=== PATIENT | male | born 2000 | race Caucasian/White ===

== ENCOUNTER 2023-10-23 13:41 | Emergency (ER) | payer OTHER ==
[2023-10-23 13:52] LABS: BASOPHILS ABSOLUTE AUTO 0.08 K/uL (0.00-0.20); EOSINOPHILS ABSOLUTE AUTO 0.11 K/uL (0.00-0.45); EOSINOPHILS PERCENT AUTO 1.3 % (0.0-6.0); HEMATOCRIT 47.4 % (42.0-52.0); HEMOGLOBIN 16.2 g/dL (14.0-18.0); IMMATURE GRAN PERCENT AUTO 1.2 % (0.0-0.4); LYMPHOCYTES ABSOLUTE AUTO 3.31 K/uL (1.00-4.80); LYMPHOCYTES PERCENT AUTO 39.5 % (24.0-44.0); MEAN CORPUSCULAR HEMOGLOBIN 29.2 pg (28.0-32.0); MEAN CORPUSCULAR HGB CONC 34.2 g/dL (32.0-36.0); MEAN CORPUSCULAR VOLUME 85.6 fL (83.0-99.0); MEAN PLATELET VOLUME 9.9 fL (9.4-12.4); MONOCYTES ABSOLUTE AUTO 0.74 K/uL (0.00-0.80); MONOCYTES PERCENT AUTO 8.8 % (0.0-8.0); NEUTROPHILS ABSOLUTE AUTO 4.05 K/uL (1.80-7.70); NEUTROPHILS PERCENT AUTO 48.2 % (41.0-71.0); PLATELET COUNT,PLT 239 K/uL (150-400); RED BLOOD CELL COUNT 5.54 M/uL (4.52-5.90); WHITE BLOOD CELL COUNT,WBC 8.39 K/uL (3.9-11.3)
[2023-10-23] MEDS ORDERED: Acetaminophen 325 MG Tab PO ONE (13:52)
[2023-10-23] MEDS ORDERED: Iopamidol 755 MG/ML 500 ML Multipack Bottle IVPUSH STA (14:09)
[2023-10-23 14:17] LABS: ALANINE AMINOTRANSFERASE,ALT 36 IU/L (14-63); ALBUMIN 3.9 g/dL (3.4-5.0); ALKALINE PHOSPHATASE 85 U/L (46-116); ASPARTATE AMNIOTRANSFERASE,AST 17 IU/L (15-37); BILIRUBIN TOTAL 0.5 mg/dL (0.2-1.0); BLOOD UREA NITROGEN,BUN 19 mg/dL (7.0-18.0); CALCIUM 9.3 mg/dL (8.5-10.1); CARBON DIOXIDE,CO2 26.1 mmol/L (21.0-32.0); CHLORIDE,CL 101 mmol/L (98-107); CREATININE 1.1 mg/dL (0.8-1.3); ESTIMATED GFR 96 mL/min (>60); GLUCOSE RANDOM 102 mg/dL (74-106); POTASSIUM,K 3.8 mmol/L (3.5-5.1); PROTEIN TOTAL,TP 7.7 g/dL (6.4-8.2); SODIUM,NA 138 mmol/L (136-148)
[2023-10-23] MEDS ORDERED: Ketorolac 30 MG/ML SDV IVPUSH ONE (18:07)
== END 2023-10-23 19:07 | disposition home or self-care (01) ==
LOC: MW.ED 13:41
DX: S06.0X0A Concussion without loss of consciousness, initial encounter (principal); S40.212A Abrasion of left shoulder, initial encounter; V43.52XA Car driver injured in collision with other type car in traffic accident, initial encounter
CPT/HCPCS: 36415; 70450; 71260; 72125; 73562; 73590; 74177; 80053; 85025; 96374; 99284; A9270; J1885; Q9967; 72128-26; 72131-26

== ENCOUNTER 2024-07-12 00:31 | Emergency (ER) | payer SELFPAY ==
[2024-07-12] MEDS ORDERED: Sodium Chloride 0.9% 10 ML Syringe FLUSH PRN (00:43)
[2024-07-12] MEDS ORDERED: Sodium Chloride 0.9% 2.5 ML Syringe FLUSH PRN (00:43)
[2024-07-12] MEDS: Ketorolac 30 MG/ML SDV IVPUSH ONE (00:52)
[2024-07-12] MEDS: Sodium Chloride 0.9% 1,000 ML IV ONE (00:52)
[2024-07-12 01:04] LABS: BASOPHILS ABSOLUTE AUTO 0.08 K/uL (0.00-0.20); BASOPHILS PERCENT AUTO 0.7 % (0.0-1.0); EOSINOPHILS ABSOLUTE AUTO 0.18 K/uL (0.00-0.45); EOSINOPHILS PERCENT AUTO 1.6 % (0.0-6.0); HEMATOCRIT 43.7 % (42.0-52.0); HEMOGLOBIN 15.3 g/dL (14.0-18.0); IMMATURE GRAN ABSOLUTE AUTO 0.16 K/uL (0.00-0.05); IMMATURE GRAN PERCENT AUTO 1.5 % (0.0-0.4); LYMPHOCYTES ABSOLUTE AUTO 3.29 K/uL (1.00-4.80); MEAN CORPUSCULAR HEMOGLOBIN 29.3 pg (28.0-32.0); MEAN CORPUSCULAR VOLUME 83.7 fL (83.0-99.0); MEAN PLATELET VOLUME 9.7 fL (9.4-12.4); MONOCYTES PERCENT AUTO 9.1 % (0.0-8.0); NEUTROPHILS ABSOLUTE AUTO 6.25 K/uL (1.80-7.70); NEUTROPHILS PERCENT AUTO 57.1 % (41.0-71.0); PLATELET COUNT,PLT 276 K/uL (150-400); RED BLOOD CELL COUNT 5.22 M/uL (4.52-5.90); WHITE BLOOD CELL COUNT,WBC 10.96 K/uL (3.9-11.3)
[2024-07-12 01:29] LABS: A/G RATIO 0.9 (0.9-1.6); ALBUMIN 3.7 g/dL (3.4-5.0); BILIRUBIN TOTAL 0.7 mg/dL (0.2-1.0); CALCIUM 9.1 mg/dL (8.5-10.1); CARBON DIOXIDE,CO2 26.9 mmol/L (21.0-32.0); EST CRCL DRUG DOSING (CG) 105.58 mL/min; POTASSIUM,K 3.5 mmol/L (3.5-5.1); PROTEIN TOTAL,TP 7.7 g/dL (6.4-8.2)
== END 2024-07-12 02:11 | disposition home or self-care (01) ==
LOC: MW.ED 00:31
DX: R07.89 Other chest pain (principal); Z88.8 Allergy status to other drugs, medicaments and biological substances; Z75.8 Other problems related to medical facilities and other health care
CPT/HCPCS: 36415; 71045; 80053; 84484; 85025; 85379; 93005; 96361; 96374; 99285; J1885; J7030; 93010; 99284

== ENCOUNTER 2025-03-16 22:54 | Emergency (ER) | payer MEDICAID ==
[2025-03-16] MEDS: Acetaminophen/HYDROcodone 325-10 MG Tab PO ONE (23:55)
[2025-03-16] MEDS: Amoxicillin/Clavulanate K 875-125 MG Tab PO ONE (23:55)
== END 2025-03-17 00:18 | disposition home or self-care (01) ==
LOC: MW.ED 22:54
DX: K04.7 Periapical abscess without sinus (principal); Z88.8 Allergy status to other drugs, medicaments and biological substances; Z79.899 Other long term (current) drug therapy; E66.9 Obesity, unspecified; Z68.41 Body mass index [BMI] 40.0-44.9, adult
CPT/HCPCS: 64400; 99282; A9270; 99283

== ENCOUNTER 2025-05-10 09:48 | Day surgery (SDC) | payer MEDICAID ==
[2025-05-10] MEDS: Lactated Ringers 1,000 ML IV SCH (10:30)
[2025-05-10] MEDS ORDERED: propofoL 500 MG/50 ML 50 ML ONE (11:49)
[2025-05-10] MEDS ORDERED: Ketamine 500 mg/10 ML MDV ONE (12:26)
[2025-05-10] MEDS ORDERED: Ondansetron 4 MG/2 ML SDV ONE (12:50)
[2025-05-10] MEDS ORDERED: Lactated Ringers 1,000 ML IV SCH (13:00)
== END 2025-05-10 13:44 | disposition home or self-care (01) ==
LOC: MW.SDS 09:48
PROVIDERS: ATTEND Surgery
DX: K59.00 Constipation, unspecified (principal); E11.9 Type 2 diabetes mellitus without complications; E78.00 Pure hypercholesterolemia, unspecified; E66.01 Morbid (severe) obesity due to excess calories; Z68.41 Body mass index [BMI] 40.0-44.9, adult; Z79.84 Long term (current) use of oral hypoglycemic drugs; Z87.891 Personal history of nicotine dependence; Z79.899 Other long term (current) drug therapy
CPT/HCPCS: 45380; J2405; J2704; J3490; J7120; 00811